=== PATIENT | female | born 1990 | race African-American/Black ===

== ENCOUNTER 2020-02-10 10:40 | Inpatient (IN) | payer OTHER ==
--- NOTE | 2020-02-10 11:48 | HP ---
Past Medical History - Primary Care Physician PCP:: Lidya Valladares - Admission Chief Complaint: schueduled for induction of labor. grade 3pl. small AC - Past Medical History ...: 3 ...Para: 1 ...Induced : 1 ...Living Children: 1 ...EDC by Dates: 02/15/20 Additional OB History: AC <3%ile, growth 11%ile - Past Surgical History Hx Myomectomy: No Hx Transabdominal Cerclage: No Physical Exam - Maternity Constitutional: Yes: Well Nourished, No Distress - Abdominal Exam/OB Number of Fetuses: Single Presentation: Vertex Contractions: Yes Regularity: Irregular Intensity: Unaware Monitor Mode: External Heart Rate (range): 140 Category: I Accelerations: Uniform Decelerations: None - Vaginal Exam/OB Vaginal Bleeding: No Speculum Exam: No Dilatation (cm): 2 Effacement (%): 50 Amniotic Membrane Status: Intact Presentation: Vertex/Position Station: -2 Problem List - Problems (1) 39 weeks gestation of Assessment/Plan: 29 year old at 39w2d Grade 3 placenta Growth 11%ile For induction of labor Code(s): Z3A.39 - 39 WEEKS GESTATION OF
[2020-02-10] MEDS ORDERED: OXYTOCIN 30 UNITS in 0.9% NS 30 UNIT/500 ML INFUS.BAG IVPB ONE (11:53)
[2020-02-10] MEDS ORDERED: ELECTROLYTE-148 SOLN 1,000 ML IV SCH (12:00)
[2020-02-10] MEDS ORDERED: OXYTOCIN 30 UNITS in 0.9% NS 30 UNIT/500 ML INFUS.BAG IVPB SCH (12:00)
[2020-02-10 12:12] VITALS: BMI 21.1
[2020-02-10 12:37] LABS: BASO % 0.3 % (0-2.0); EOS % 0.3 % (0-4.5); HEMATOCRIT 38.3 % (32.4-45.2); HEMOGLOBIN 12.9 GM/dL (10.7-15.3); LYMPH % 23.1 % (8-40); MCH 29.5 pg (25.7-33.7); MCHC 33.8 g/dl (32.0-36.0); MEAN CELL VOLUME 87.1 fl (80-96); MEAN PLT VOLUME 9.5 fl (7.5-11.1); MONO % 5.7 % (3.8-10.2); NEUT % 70.6 % (42.8-82.8); PLATELET COUNT 197 K/MM3 (134-434); RDW 12.7 % (11.6-15.6); WHITE BLOOD COUNT 7.5 K/mm3 (4.0-10.0)
[2020-02-10 12:41] LABS: INR 0.91 (0.83-1.09); PROTHROMBIN TIME (PATIENT) 10.7 SEC (9.7-13.0)
[2020-02-10 12:44] LABS: ACTIVATED PTT 30.3 SECONDS (25.2-36.5)
[2020-02-10 13:29] LABS: BLOOD UREA NITROGEN 7.1 mg/dL (7-18); CALCIUM 9.3 mg/dL (8.5-10.1); CREATININE 0.6 mg/dL (0.55-1.3); POTASSIUM 3.7 mmol/L (3.5-5.1)
--- NOTE | 2020-02-10 14:53 | PN ---
Progress Note (short form) - Note Progress Note: IOL GBS negative c/o painful contractions VE 4/80/-1, AROM clear fluid Cat 1 tracing contractions q 3-4 min Problem List - Problems (1) 39 weeks gestation of Code(s): Z3A.39 - 39 WEEKS GESTATION OF
[2020-02-10] MEDS ORDERED: OXYTOCIN 20 UNITS in 0.9% NS 20 UNIT/1,000 ML INFUS.BAG IV ONE (15:09)
--- NOTE | 2020-02-10 17:31 | PN ---
Progress Note (short form) - Note Progress Note: IOL c/o pain and pressure VE 7/90/-1 Cat 1 tracing Contractions q 2 min Continue with Pitocin Epidural Anticipate vag delivery Problem List - Problems (1) 39 weeks gestation of Code(s): Z3A.39 - 39 WEEKS GESTATION OF
[2020-02-10] MEDS ORDERED: PCA PUMP NR ONE (17:39)
[2020-02-10] MEDS ORDERED: IBUPROFEN 600 MG TABLET (FP) PO PRN (18:12)
[2020-02-10] MEDS ORDERED: BISACODYL 10 MG SUPP.RECT RC PRN (18:12)
[2020-02-10] MEDS ORDERED: ACETAMINOPHEN 325 MG TABLET (FP) PO PRN (18:12)
[2020-02-10] MEDS ORDERED: METHYLERGONOVINE MALEATE 0.2 MG/1 ML AMP IM PRN (18:12)
[2020-02-10] MEDS ORDERED: BENZOCAINE 20% 57 GM BOTTLE TP PRN (18:12)
[2020-02-10] MEDS ORDERED: BENZOCAINE 28 GM HEMORRHOIDAL OINTMENT TP PRN (18:12)
[2020-02-10] MEDS ORDERED: WITCH HAZEL 50% (TUCKS) 40 PAD/JAR PAD TP PRN (18:12)
--- NOTE | 2020-02-10 18:12 | PN ---
Delivery - Delivery Vaginal Delivery: No Problems Type of Anesthesia: None Episiotomy/Laceration: None EBL (cc): 300 Delivery, Single - Feeding Plan Initial Plan: Exclusive throughout hospitalization
[2020-02-11 09:26] LABS: BASO % 0.2 % (0-2.0); EOS % 0.4 % (0-4.5); HEMATOCRIT 37.9 % (32.4-45.2); HEMOGLOBIN 12.6 GM/dL (10.7-15.3); LYMPH % 23.4 % (8-40); MCH 29.3 pg (25.7-33.7); MCHC 33.3 g/dl (32.0-36.0); MEAN CELL VOLUME 88.1 fl (80-96); MEAN PLT VOLUME 9.6 fl (7.5-11.1); MONO % 5.1 % (3.8-10.2); NEUT % 70.9 % (42.8-82.8); PLATELET COUNT 205 K/MM3 (134-434); RDW 13.1 % (11.6-15.6); WHITE BLOOD COUNT 11.4 K/mm3 (4.0-10.0)
--- NOTE | 2020-02-11 10:47 | PN ---
Progress Note (short form) - Note Progress Note: S/P abdomen soft + BS mod lochia breasts soft no calf tenderness pt ambulating well afebrile vitals stable hct 37 plan d/c home tomorrow.
[2020-02-11] MEDS: OXYTOCIN 20 UNITS in 0.9% NS 20 UNIT/1,000 ML INFUS.BAG IV SCH (19:38)
[2020-02-11] MEDS ORDERED: SENNOSIDES/DOCUSATE COMBO (SENNA PLUS) TABLET (UD) PO PRN (22:00)
--- NOTE | 2020-02-12 10:23 | DS ---
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 Vital Signs: Vital Signs Temperature 98.8 F 02/11/20 22:00 Pulse Rate 81 02/11/20 22:00 Respiratory Rate 20 02/11/20 22:00 Blood Pressure 104/64 02/11/20 22:00 O2 Sat by Pulse Oximetry (%) 96 02/11/20 22:00 Labs: CBC, BMP 02/11/20 08:57 02/10/20 12:00 Delivery - Delivery Vaginal Delivery: No Problems Type of Anesthesia: None Episiotomy/Laceration: None EBL (cc): 300 Delivery, Single - Stages of Labor Date 1st Stage Initiatied: 02/10/20 Time 1st Stage Initiated: 08:30 Date 2nd Stage Initiated: 02/10/20 Time 2nd Stage Initiated: 17:35 Date of Delivery: 02/10/20 Time of Delivery: 17:44 Time Placenta Delivered: 17:40 - 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 without complaints. vss - af abd: soft, nt, nd, fundus firm ve: min lochia, intact ext: no calf tenderness b/l a/p ppd 2 s/p doing well d/c to home today Discharge Summary Problems reviewed: Yes Reason For Visit: INDUCTION OF LABOR Current Active Problems 39 weeks gestation of (Acute) Procedures: Principal: Hospital Course: admitted for iol due to sga underwent uncomplicated PP course uneventful Condition: Good - Instructions Diet, Activity, Other Instructions: regular diet activity as tolerated, but avoid heavy lifting, strenuous activity and intercourse. pericare f/u with [facility] in 4-6 weeks for check. call for appt. Disposition: HOME - Home Medications Comprehensive Discharge Medication List: Ambulatory Orders Vitamins (Sjr) - 1 tab PO DAILY 02/10/20 Ibuprofen [Motrin -] 600 mg PO Q6H PRN #50 tablet 02/12/20 Witch Pilar 50% (Tucks) [Tucks Pads -] 1 pad TP PRN PRN pad 02/12/20
[2020-02-12 10:41] VITALS: BP 104/60; PULSE 67; TEMP 98.1
== END 2020-02-12 14:30 | disposition home or self-care (01) | DRG 560 ==
LOC: JLDR 10:40 → J3N 19:50
PROVIDERS: ADMIT Obstetrics & Gynecology; ATTEND Obstetrics & Gynecology
PROC: 3E033VJ Introduction of Other Hormone into Peripheral Vein, Percutaneous Approach (ICD-10-PCS; principal; 2020-02-10)
PROC: 10907ZC Drainage of Amniotic Fluid, Therapeutic from Products of Conception, Via Natural or Artificial Opening (ICD-10-PCS; 2020-02-10)
PROC: 10E0XZZ Delivery of Products of Conception, External Approach (ICD-10-PCS; 2020-02-10)
DX: O43.893 Other placental disorders, third trimester (principal); O36.5990 Maternal care for other known or suspected poor fetal growth, unspecified trimester, not applicable or unspecified; Z3A.39 39 weeks gestation of pregnancy; Z37.0 Single live birth
CPT/HCPCS: 36415; 59409; 80048; 85025; 85610; 85730; 86850; 86900; 86901; 87389

== ENCOUNTER 2020-02-20 14:17 | Emergency (ER) | payer OTHER ==
[2020-02-20 14:25] VITALS: BMI 20.5
--- NOTE | 2020-02-20 15:54 | PDOC ---
History of Present Illness - General Chief Complaint: Pain, Acute Stated Complaint: ABD. PAIN Time Seen by Provider: 02/20/20 14:37 History Source: Patient Exam Limitations: No Limitations - History of Present Illness Travel History: No Initial Comments: 02/20/20 15:54 29 worsened [id number] female status post 10 days via vaginal delivery with no difficulties or prolonged discharge. Presents the ED with complaints of mid suprapubic cramping for the past 8 days intermittently which began after she started breast-feeding 2 days after delivery. Patient states she had vaginal bleeding that day with large clots but denies any vaginal bleeding presently. Patient does still continue with cramping breast- feeding. Patient denies any urinary complaints or fever. Timing/Duration: reports: intermittent Quality: reports: mild, moderate Abdominal Pain Onset Location: reports: suprapubic Pain Radiation: reports: no radiation Activities at Onset: reports: none Aggravating Factors: improves with: None Alleviating Factors: improves with: None Past History - Travel History Traveled outside of the country in the last 30 days: No Close contact w/someone who was outside of country & ill: No - Medical History Allergies/Adverse Reactions: Allergies Allergy/AdvReac Type Severity Reaction Status Date / Time No Known Allergies Allergy Verified 02/20/20 14:23 Home Medications: Ambulatory Orders Vitamins (Sjr) - 1 tab PO DAILY 02/10/20 Ibuprofen [Motrin -] 600 mg PO Q6H PRN #50 tablet 02/12/20 Witch Pilar 50% (Tucks) [Tucks Pads -] 1 pad TP PRN PRN pad 02/12/20 Asthma: No Cancer: No Cardiac Disorders: No Diabetes: No HTN: No Seizures: No Thyroid Disease: No - Reproductive History Is Patient Now?: No - Psycho-Social/Smoking History Patient Lives Alone: No Lives with/in: spouse/SO Smoking History: Unknown if ever smoked - Substance Abuse Hx (Audit-C & DAST Scrn) How often the patient has a drink containing alcohol: Never Score: In Men: 4 or > Positive; In Women: 3 or > Positive: 0 Screen Result (Pos requires Nsg. Audit-10AR): Negative In the last yr the pt used illegal drug/Rx for NonMed reason: No Score: Yes response is considered Positive: 0 Screen Result (Positive result requires Nsg. DAST-10): Negative Review of Systems - Review of Systems Able to Perform ROS?: Yes Constitutional: No: Symptoms Reported HEENTM: No: Symptoms Reported Respiratory: No: Symptoms reported Cardiac (ROS): No: Symptoms Reported ABD/GI: Yes: Abdominal cramping : No: Symptoms Reported Musculoskeletal: No: Symptoms Reported Integumentary: No: Symptoms Reported Neurological: No: Symptoms reported Endocrine: No: Symptoms Reported *Physical Exam - Vital Signs Last Vital Signs Temp Pulse Resp BP Pulse Ox 75 18 109/72 99 02/20/20 14:23 02/20/20 14:23 02/20/20 14:23 02/20/20 14:23 - Physical Exam General Appearance: Yes: Nourished, Appropriately Dressed. No: Apparent Distress HEENT: negative: Pale Conjunctivae Neck: positive: Supple Respiratory/Chest: positive: Lungs Clear, Normal Breath Sounds. negative: Respiratory Distress, Accessory Muscle Use Cardiovascular: positive: Regular Rhythm, Regular Rate. negative: Murmur Gastrointestinal/Abdominal: positive: Soft, Tenderness (mid suprapubic tenderness) Musculoskeletal: negative: CVA Tenderness Extremity: positive: Normal Inspection Integumentary: positive: Normal Color, Warm, Moist Neurologic: positive: Motor Strength 5/5 (ambulatory) ED Treatment Course - LABORATORY CBC & Chemistry Diagram: 02/20/20 17:25 02/20/20 17:25 - RADIOLOGY Radiology Studies Ordered: Category Date Time Status PELVIC / BLADDER US [US] Stat Ultrasound 02/20/20 14:45 Ordered Medical Decision Making - Medical Decision Making 02/20/20 15:59 Chief complaint: Mid suprapubic cramping for the past 8 days which began after nursing her son 2 days . Patient states heavy vaginal bleeding that day but states symptoms of bleeding have resolved. Patient has no other complaints noted she has history of clotting disorders. Exam: With severe tenderness on exam vital signs stable no vaginal bleeding or discharge. Plan: Labs, urine, ultrasound ordered to rule out retained products versus normal changes 02/20/20 18:31 Laboratory Tests 02/20/20 02/20/20 17:25 17:25 WBC 9.0 Hgb 12.6 Hct 37.1 Neutrophils % 69.0 Sodium 143 Potassium 3.9 Chloride 112 H Carbon Dioxide 25 Anion Gap 6 L BUN 8.5 Creatinine 0.5 L Random Glucose 71 L Calcium 8.9 Total Bilirubin 0.2 AST 12 L ALT 20 Alkaline Phosphatase 115 Total Protein 6.7 Albumin 3.2 L 02/20/20 19:22 Ultrasound shows inhomogeneous thickened endometrium measuring 13 mm suggestive of retained products otherwise no free fluid or other acute pathology. Patient will be recommended to follow-up with her DIRECTOR OCCUPATIONAL. Repeat vitals. Discharge - Discharge Information Problems reviewed: Yes Clinical Impression/Diagnosis: Retained products of conception Condition: Good Disposition: HOME - Follow up/Referral - Patient Discharge Instructions Additional Instructions: At this time I recommend taking Tylenol extra strength every 6-8 hours. Also follow-up with your DIRECTOR OCCUPATIONAL next week. If you develop a fever or develop worsening abdominal pain please return to the ED immediately - Post Discharge Activity
[2020-02-20 18:02] LABS: BASO % 0.4 % (0-2.0); EOS % 1.8 % (0-4.5); HEMATOCRIT 37.1 % (32.4-45.2); HEMOGLOBIN 12.6 GM/dL (10.7-15.3); LYMPH % 23.3 % (8-40); MCH 30.2 pg (25.7-33.7); MEAN PLT VOLUME 8.7 fl (7.5-11.1); MONO % 5.5 % (3.8-10.2); PLATELET COUNT 263 K/MM3 (134-434); RBC 4.17 M/mm3 (3.60-5.2)
[2020-02-20 18:23] LABS: ALBUMIN 3.2 g/dl (3.4-5.0); BILIRUBIN,TOTAL 0.2 mg/dL (0.2-1); BLOOD UREA NITROGEN 8.5 mg/dL (7-18); CALCIUM 8.9 mg/dL (8.5-10.1); CREATININE 0.5 mg/dL (0.55-1.3); POTASSIUM 3.9 mmol/L (3.5-5.1); TOT PROT 6.7 g/dl (6.4-8.2)
[2020-02-20] MEDS ORDERED: KETOROLAC TROMETHAMINE 30 MG/1 ML VIAL ONE (18:37)
[2020-02-20] MEDS ORDERED: KETOROLAC TROMETHAMINE 30 MG/1 ML VIAL IVPUSH ONE (19:05)
[2020-02-20 19:39] VITALS: BP 103/68; PULSE 65; TEMP 98.6
== END 2020-02-20 19:39 | disposition home or self-care (01) ==
LOC: JER 14:17
PROC: 3E0233Z Introduction of Anti-inflammatory into Muscle, Percutaneous Approach (ICD-10-PCS; principal; 2020-02-20)
DX: O73.1 Retained portions of placenta and membranes, without hemorrhage (principal)
CPT/HCPCS: 36415; 76856-TC; 80053; 85025; 99285-25